=== PATIENT | female | born 1975 | race Asian ===

== ENCOUNTER 2016-12-20 08:43 | Outpatient (CLI) | payer BC ==
[~2016-12-20 08:43] MED LIST: LISI10TA11 PO
[2016-12-20 09:46] LABS: POTASSIUM 3.3 mmol/L (3.6-5.2); SODIUM 137 mmol/L (136-145)
[2016-12-20 09:47] LABS: PLATELET COUNT 308 K/uL (152-353)
== END 2016-12-20 19:30 | disposition home or self-care (01) ==
LOC: LABW 08:43
PROVIDERS: Family Medicine
DX: I10 Essential (primary) hypertension (principal); K21.9 Gastro-esophageal reflux disease without esophagitis; F41.8 Other specified anxiety disorders; E55.9 Vitamin D deficiency, unspecified
CPT/HCPCS: 36415; 80053; 80061; 81000; 82043; 82306; 82570; 83735; 84439; 84443; 85027

== ENCOUNTER 2022-03-11 09:04 | Outpatient (CLI) | payer OTHER ==
[2022-03-11 10:45] LABS: PLATELET COUNT 263 K/uL (152-353)
[2022-03-11 11:01] LABS: POTASSIUM 3.3 mmol/L (3.6-5.2)
[2022-03-11 11:22] LABS: PARTIAL THROMBOPLASTIN TIME 30.7 SECONDS (24.5-33.6)
== END 2022-03-11 18:58 | disposition home or self-care (01) ==
LOC: LABW 09:04
PROVIDERS: ATTEND Family Medicine
DX: R07.89 Other chest pain (principal); I10 Essential (primary) hypertension; R00.2 Palpitations; R73.03 Prediabetes; E78.00 Pure hypercholesterolemia, unspecified; E55.9 Vitamin D deficiency, unspecified
CPT/HCPCS: 36415; 80053; 80061; 81002; 82306; 82550; 83036; 83735; 84439; 84443; 84484; 84550; 85027; 85610; 85730; 93005

== ENCOUNTER 2022-03-30 09:26 | Outpatient (CLI) | payer OTHER | END 2022-03-30 19:19 | disposition home or self-care (01) | LOC: MAMMO 09:26 | PROVIDERS: ATTEND Family Medicine | DX: Z12.31 Encounter for screening mammogram for malignant neoplasm of breast (principal) ==